=== PATIENT | female | born 1960 ===

== ENCOUNTER 2016-09-16 13:39 | Emergency (ER) | payer OTHER ==
[2016-09-16] MEDS ORDERED: Sodium Chloride 0.9% 1,000 ML IV ONE (14:23)
[2016-09-16] MEDS ORDERED: Sodium Chloride 0.9% 1,000 ML ONE (14:57)
[2016-09-16 15:07] LABS: BASO # 0.1 K/uL (0.0-0.2); BASO % 0.4 % (0.0-2.0); EOS # 0.1 K/uL (0.0-0.7); EOS % 0.6 % (0.0-4.0); HEMATOCRIT 39.8 % (34.0-47.0); LYMPH # 0.2 K/uL (1.0-4.3); LYMPH % 1.3 % (20.0-40.0); MEAN CELL VOLUME 91.4 fL (81.0-99.0); MEAN CORPUSCULAR HEMOGLOBIN 29.9 pg (27.0-31.0); MEAN CORPUSCULAR HGB CONC 32.7 g/dL (33.0-37.0); MONO # 0.6 K/uL (0.0-0.8); MONO % 4.7 % (0.0-10.0); PLATELET COUNT 184 K/uL (130-400); WHITE BLOOD COUNT 13.4 K/uL (4.8-10.8)
[2016-09-16 15:08] LABS: CHLORIDE 100 mmol/L (98-107); POTASSIUM 3.8 mmol/L (3.6-5.2); SODIUM 138 mmol/L (132-148)
--- NOTE | 2016-09-16 15:09 | C.PDOC ---
History Of Present Illness 56-year-old female, presents to the emergency department with complaints of 3-4 day duration of fevers, chills and generalized headache. Patient also notes questionable chest pain when she coughs. Denies sore throat, nausea/vomiting, diarrhea, or any other associated symptoms. No other complaints at this time. Time Seen by Provider: 09/16/16 14:00 Chief Complaint (Nursing): Chest Pain History Per: Patient History/Exam Limitations: no limitations Past Medical History Reviewed: Historical Data, Nursing Documentation, Vital Signs Vital Signs: Last Vital Signs Temp 99.6 F 09/16/16 17:44 Pulse 78 09/16/16 17:44 Resp 20 09/16/16 17:44 BP 103/77 09/16/16 17:44 Pulse Ox 97 09/16/16 17:56 - Medical History PMH: HTN, Hypercholesterolemia Surgical History: Family History: States: Unknown Family Hx - Social History Hx Tobacco Use: No Hx Alcohol Use: No Hx Substance Use: No - Immunization History Hx Tetanus Toxoid Vaccination: No Hx Influenza Vaccination: No Hx Pneumococcal Vaccination: No Review Of Systems Except As Marked, All Systems Reviewed And Found Negative. Constitutional: Positive for: Fever, Chills Cardiovascular: Negative for: Palpitations Respiratory: Negative for: Shortness of Breath Gastrointestinal: Negative for: Nausea, Vomiting Musculoskeletal: Negative for: Back Pain Skin: Negative for: Rash Neurological: Positive for: Headache Physical Exam - Physical Exam Appears: Non-toxic, No Acute Distress Skin: Warm, Dry, No Rash Head: Atraumatic, Normacephalic Eye(s): bilateral: Normal Inspection, PERRL, EOMI Ear(s): Bilateral: Normal Nose: Normal Oral Mucosa: Moist Lips: Normal Appearing Throat: No Erythema, No Exudate Neck: Normal ROM, Supple Chest: Symmetrical, No Tenderness Cardiovascular: Rhythm Regular, No Friction Rub, No Murmur Respiratory: Normal Breath Sounds, No Accessory Muscle Use, No Stridor, No Wheezing Gastrointestinal/Abdominal: Soft, No Tenderness Back: Normal Inspection, No CVA Tenderness Extremity: Normal ROM, No Swelling Neurological/Psych: Oriented x3, Normal Speech, Normal Cranial Nerves, Normal Motor Gait: Steady ED Course And Treatment - Laboratory Results Result Diagrams: 09/16/16 14:55 09/16/16 14:55 ECG: Interpreted By Me, Viewed By Me ECG Rhythm: Sinus Rhythm Interpretation Of ECG: Normal axis Rate From EC O2 Sat by Pulse Oximetry: 97 (on RA) Pulse Ox Interpretation: Normal - Radiology CXR: Interpreted by Me, Read By Radiologist CXR Interpretation: Yes: Other (Hazy opacity in both lung bases. Possible elevation of the left hemidiaphragm, nonspecific. ) Medical Decision Making Medical Decision Making: Patient was found to have bandemia of 14. Lactic acid was ordered and was normal at 1.6. The patient clinically looks well, non-toxic and reports improvement of symptoms. On re-exam, the patient reports improvement of symptoms. Lungs are CTA, heart is RRR, abdomen is soft, non-tender and tolerating PO well. Ambulatory in the Ed with steady gait. Follow up with the medical doctor within 1-2 days. Return of worsened. Disposition - Disposition Referrals: [facility] [Outside] Disposition: HOME/ ROUTINE Disposition Time: 17:53 Condition: IMPROVED Additional Instructions: Follow up with the medical doctor within 1-2 days. Return of worsened. Prescriptions: levoFLOXacin [Levaquin] 500 mg PO DAILY #10 tab Ibuprofen [Motrin] 600 mg PO TID #21 tab Instructions: Bacterial Pneumonia (ED), Urinary Tract Infection in Women (DC) Print Language: SWEDISH - Clinical Impression Clinical Impression: Pneumonia, UTI (urinary tract infection) - Scribe Statement The provider has reviewed the documentation as recorded by the Tete Fink All medical record entries made by the Scribe were at my direction and personally dictated by me. I have reviewed the chart and agree that the record accurately reflects my personal performance of the history, physical exam, medical decision making, and the department course for this patient. I have also personally directed, reviewed, and agree with the discharge instructions and disposition.
[2016-09-16 15:10] LABS: BILIRUBIN,TOTAL 0.9 mg/dL (0.2-1.3); GFR AFRICAN-AMERICAN > 60
[2016-09-16 15:11] LABS: ALB/GLOB RATIO 1.3 (1.0-2.1); ALKALINE PHOSPHATASE 79 U/L (38-126); ALT/SGPT 91 U/L (9-52); AST/SGOT 55 U/L (14-36); BLOOD UREA NITROGEN 9 mg/dL (7-17); CARBON DIOXIDE 25 mmol/L (22-30); GLUCOSE,RANDOM 129 mg/dL (65-105); TOTAL PROTEIN 7.4 g/dL (6.3-8.3)
[2016-09-16 15:12] LABS: CALCIUM 8.3 mg/dl (8.6-10.4)
[2016-09-16 15:26] LABS: RBC URINE 8 /hpf (0-3); URINE BILIRUBIN NEGATIVE (NEGATIVE); URINE BLOOD 1+ (NEGATIVE); URINE COLOR Amber (YELLOW); URINE GLUCOSE (UA) NORMAL (Normal); URINE KETONE NEGATIVE (NEGATIVE); URINE LEUKOCYTE ESTERASE NEG Leu/uL (Negative); URINE PROTEIN 1+ mg/dL (NEGATIVE); WBC URINE 2 /hpf (0-5)
--- NOTE | 2016-09-16 15:30 | RAD ---
PROCEDURE: CHEST RADIOGRAPH, 1 VIEW HISTORY: cough, headache. fever COMPARISON: 05/04/2014 FINDINGS: LUNGS: Hazy opacity in both lung bases. Possible elevation of the left hemidiaphragm, nonspecific. PLEURA: No pneumothorax or pleural fluid seen. CARDIOVASCULAR: Enlarged heart. OSSEOUS STRUCTURES: The osseous structures demonstrate degenerative changes. VISUALIZED UPPER ABDOMEN: Upper abdomen is suboptimally evaluated. OTHER FINDINGS: None. IMPRESSION: Hazy opacity in both lung bases. Possible elevation of the left hemidiaphragm, nonspecific. PA lateral chest radiographs recommended for better evaluation.
[2016-09-16 15:32] LABS: BASOPHIL 2 % (0-2); NEUTROPHIL 79 % (50-75); TOTAL CELLS COUNTED 100
[2016-09-16 16:17] LABS: VENOUS BLOOD GAS BASE EXCESS 0.6 mmol/L (0.0-2.0); VENOUS BLOOD GAS PCO2 36 mmHg (40-60); VENOUS BLOOD PH 7.44 (7.32-7.43)
[2016-09-16 17:45] VITALS: BP 103/77; PULSE 78; RESP 20; TEMP 99.6
[2016-09-16 17:54] VITALS: O2SAT 97
== END 2016-09-16 18:10 | disposition home or self-care (01) ==
LOC: C.ER 13:39
DX: J18.9 Pneumonia, unspecified organism (principal); N39.0 Urinary tract infection, site not specified
CPT/HCPCS: 71010; 80053; 81001; 82803; 85025; 87040; 87086; 96361; 96374; 99285; J1885; J7040

== ENCOUNTER 2016-09-27 19:00 | Emergency (ER) | payer OTHER ==
[2016-09-27 19:22] VITALS: O2SAT 97
[2016-09-27] MEDS ORDERED: DiphenhydrAMINE 50 mg/ml Inj IM STA (19:40)
[2016-09-27] MEDS ORDERED: DiphenhydrAMINE 50 mg/ml Inj ONE (19:54)
[2016-09-27 20:30] VITALS: BP 129/73; PULSE 69; RESP 18; TEMP 98.1
--- NOTE | 2016-09-27 20:34 | C.PDOC ---
History Of Present Illness 56 year old patient presents to the emergency department complaining of a diffuse pruritic rash for the past 4 days. Patient started taking Levaquin about 3 days before the rash started. She continued taking the pills. She has no other known allergens. Patient denies difficulty swallowing, tongue swelling , lip swelling, shortness of breath, wheezing, fever, chills, nausea or vomiting. Time Seen by Provider: 09/27/16 19:30 Chief Complaint (Nursing): Allergic Reaction History Per: Patient History/Exam Limitations: no limitations Onset/Duration Of Symptoms: Days (4) Current Symptoms Are (Timing): Still Present Context: Other Possible Cause: Medication Associated Symptoms: Skin Rash, Itching Severity: Mild Pain Scale Rating Of: 2 Recent travel outside of the [place]: No Past Medical History Reviewed: Historical Data, Nursing Documentation, Vital Signs Vital Signs: Last Vital Signs Temp 98.1 F 09/27/16 20:29 Pulse 69 09/27/16 20:29 Resp 18 09/27/16 20:29 BP 129/73 09/27/16 20:29 Pulse Ox 97 09/27/16 20:51 - Medical History PMH: HTN, Hypercholesterolemia Surgical History: Family History: States: Unknown Family Hx - Social History Hx Tobacco Use: No Hx Alcohol Use: No Hx Substance Use: No - Immunization History Hx Tetanus Toxoid Vaccination: No Hx Influenza Vaccination: No Hx Pneumococcal Vaccination: No Review Of Systems Except As Marked, All Systems Reviewed And Found Negative. Constitutional: Negative for: Fever, Chills ENT: Negative for: Mouth Swelling, Throat Swelling Respiratory: Negative for: Shortness of Breath, Wheezing Gastrointestinal: Negative for: Nausea, Vomiting Skin: Positive for: Rash Physical Exam - Physical Exam Appears: Non-toxic, No Acute Distress Skin: Warm, Dry, Rash (diffuse urticaria) Head: Atraumatic, Normacephalic Eye(s): bilateral: Normal Inspection, EOMI Ear(s): Bilateral: Normal Nose: Normal Oral Mucosa: Moist Tongue: Normal Appearing, No Swelling Lips: Normal Appearing, No Swelling Throat: Normal Neck: Normal ROM, Supple Chest: Symmetrical Cardiovascular: Rhythm Regular Respiratory: Normal Breath Sounds, No Rales, No Rhonchi, No Wheezing Neurological/Psych: Oriented x3, Normal Speech, Normal Cognition Gait: Steady ED Course And Treatment O2 Sat by Pulse Oximetry: 97 (room air) Pulse Ox Interpretation: Normal Progress Note: Plan: -Benadryl, Pepcid, Prednisone. -Reassess and disposition. Progress: Reassess (Allergic Reaction): Upon reassessment, patient is resting comfortably, tolerating PO, has no shortness of breath, has no intra-oral swelling, no stridor, and improving pruritus. Patient was advised to avoid potential allergens, and to follow up with physician. Return if symptoms worsen. Disposition Counseled Patient/Family Regarding: Diagnosis, Need For Followup, Rx Given - Disposition Referrals: [facility] [Outside] Disposition: HOME/ ROUTINE Disposition Time: 20:32 Condition: STABLE Additional Instructions: Please follow up in clinic Do not take last dose of levofloxacin Take meds as directed Return to ER if difficulty breathing, vomiting, lip swelling or worse Prescriptions: DiphenhydrAMINE [Benadryl] 50 mg PO Q6H #20 cap Famotidine [Pepcid] 20 mg PO DAILY #10 tab predniSONE [Prednisone] 40 mg PO DAILY #10 tab Instructions: Urticaria (ED) Print Language: INDIAN - Clinical Impression Clinical Impression: Allergic urticaria - 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 - Scribe Statement The provider has reviewed the documentation as recorded by the Scribe Vita Armenta All medical record entries made by the Scribe were at my direction and personally dictated by me. I have reviewed the chart and agree that the record accurately reflects my personal performance of the history, physical exam, medical decision making, and the department course for this patient. I have also personally directed, reviewed, and agree with the discharge instructions and disposition.
== END 2016-09-27 20:39 | disposition home or self-care (01) ==
LOC: C.ER 19:00
DX: L50.0 Allergic urticaria (principal)
CPT/HCPCS: 96372; 99285; J1200

== ENCOUNTER 2017-01-02 08:10 | Emergency (ER) | payer OTHER ==
--- NOTE | 2017-01-02 08:49 | C.PDOC ---
History Of Present Illness 56 yr old female presents to the ER with complaints of dysuria, superpubic discomfort and hematuria since last night. Patient reports she has had prior UTIS in the past, last one was in September. Patient denies fever, chest pain, SOB, nausea, vomiting, diarrhea, weakness or numbness. Time Seen by Provider: 01/02/17 08:26 Chief Complaint (Nursing): Female Genitourinary History Per: Patient History/Exam Limitations: no limitations Onset/Duration Of Symptoms: Waxing/Waning, Sudden Onset (Last night) Pain Scale Rating Of: 3 Past Medical History Reviewed: Historical Data, Nursing Documentation, Vital Signs Vital Signs: Last Vital Signs Temp 98.5 F 01/02/17 11:38 Pulse 57 L 01/02/17 11:38 Resp 18 01/02/17 11:38 BP 107/57 L 01/02/17 11:38 Pulse Ox 97 01/02/17 11:38 - Medical History PMH: HTN, Hypercholesterolemia Surgical History: Family History: States: No Known Family Hx - Social History Hx Tobacco Use: No Hx Alcohol Use: No Hx Substance Use: No - Immunization History Hx Tetanus Toxoid Vaccination: No Hx Influenza Vaccination: No Hx Pneumococcal Vaccination: No Review Of Systems Except As Marked, All Systems Reviewed And Found Negative. Constitutional: Negative for: Fever Cardiovascular: Negative for: Chest Pain Respiratory: Negative for: Shortness of Breath Gastrointestinal: Positive for: Abdominal Pain (Superpubic discomfort). Negative for: Nausea, Vomiting, Diarrhea Genitourinary: Positive for: Dysuria, Hematuria Neurological: Negative for: Weakness, Numbness Physical Exam - Physical Exam Appears: Non-toxic, No Acute Distress Skin: Warm, Dry, No Rash Head: Atraumatic, Normacephalic Oral Mucosa: Moist Chest: Symmetrical, No Tenderness Cardiovascular: Rhythm Regular, No Murmur Respiratory: Normal Breath Sounds, No Rales, No Rhonchi, No Stridor, No Wheezing Gastrointestinal/Abdominal: Soft, Tenderness (Mild superpubic tenderness), No Guarding, No Rebound Back: Normal Inspection, No CVA Tenderness Extremity: Normal ROM, No Swelling Neurological/Psych: Oriented x3, Normal Speech, Normal Motor ED Course And Treatment O2 Sat by Pulse Oximetry: 98 (RA ) Pulse Ox Interpretation: Normal Medical Decision Making Medical Decision Making: PLAN: * Urinalysis * Pyridium PO Disposition Counseled Patient/Family Regarding: Studies Performed, Diagnosis, Need For Followup, Rx Given - Disposition Referrals: [facility] [Outside] Disposition: HOME/ ROUTINE Disposition Time: 12:30 Condition: STABLE Additional Instructions: Follow up with your doctor or the clinic. Return to the emergency department with any further concerns. Prescriptions: Cefaclor 500 mg PO BID #20 capsule Instructions: Urinary Tract Infection in Women (DC) Forms: [employer] (Y[place]i), Gen Discharge Inst [place] Citizen - POA Present On Arrival: None - Clinical Impression Clinical Impression: UTI (urinary tract infection) - Scribe Statement The provider has reviewed the documentation as recorded by the Scribe Hayley Alcantara Provider Attestation: All medical record entries made by the Scribe were at my direction and personally dictated by me. I have reviewed the chart and agree that the record accurately reflects my personal performance of the history, physical exam, medical decision making, and the department course for this patient. I have also personally directed, reviewed, and agree with the discharge instructions and disposition.
[2017-01-02 09:37] LABS: SQUAMOUS EPITHIAL 1 /hpf (0-5); URINE BILIRUBIN NEGATIVE (NEGATIVE); URINE BLOOD 3+ (NEGATIVE); URINE CLARITY Hazy (Clear); URINE GLUCOSE (UA) NORMAL (Normal); URINE LEUKOCYTE ESTERASE 2+ Leu/uL (Negative); URINE NITRATE POSITIVE (NEGATIVE); URINE PROTEIN 2+ mg/dL (NEGATIVE); URINE UROBILINOGEN NORMAL mg/dL (0.2-1.0)
[2017-01-02 09:39] LABS: URINE COLOR AMBER (YELLOW)
[2017-01-02] MEDS ORDERED: Ciprofloxacin 400mg/200ml D5W 200 ML IVPB STA (09:40)
[2017-01-02] MEDS ORDERED: cefTRIAXone IV 1 gm in Dextros 50 ML IVPB ONE ×2 (09:40→10:11)
[2017-01-02 12:34] VITALS: O2SAT 98
[2017-01-02 13:14] VITALS: BP 134/73; PULSE 66; RESP 17; TEMP 99
== END 2017-01-02 13:14 | disposition home or self-care (01) ==
LOC: C.ER 08:10
DX: N39.0 Urinary tract infection, site not specified (principal)
CPT/HCPCS: 81001; 87086; 99285; J0696

== ENCOUNTER 2017-07-01 12:53 | Emergency (ER) | payer OTHER ==
[2017-07-01 13:10] VITALS: TEMP 98
--- NOTE | 2017-07-01 14:27 | C.PDOC ---
History Of Present Illness 57 year old female presents to the emergency room complaining of a headache for 2 weeks. Patient also reports generalized body aches. Additionally she complains of left arm pain onset today. Denies any chest pain, shortness of breath, or fever. States she has been taking Motrin without relief. PMD: None Time Seen by Provider: 07/01/17 13:27 Chief Complaint (Nursing): Flu-like Symptoms History Per: Patient History/Exam Limitations: no limitations Onset/Duration Of Symptoms: Days (x 2 weeks) Current Symptoms Are (Timing): Still Present Location Of Pain: Headache Severity: None Recent travel outside of the [place]: No Past Medical History Reviewed: Historical Data, Nursing Documentation, Vital Signs Vital Signs: Last Vital Signs Temp 98 F 07/01/17 13:07 Pulse 84 07/01/17 15:03 Resp 16 07/01/17 15:03 BP 142/84 07/01/17 15:03 Pulse Ox 99 07/01/17 15:03 - Medical History PMH: HTN, Hypercholesterolemia, Pneumonia Surgical History: Family History: States: Unknown Family Hx - Social History Hx Tobacco Use: No Hx Alcohol Use: No Hx Substance Use: No - Immunization History Hx Tetanus Toxoid Vaccination: No Hx Influenza Vaccination: No Hx Pneumococcal Vaccination: No Review Of Systems Except As Marked, All Systems Reviewed And Found Negative. Constitutional: Positive for: Other (body aches). Negative for: Fever, Chills Cardiovascular: Negative for: Chest Pain Respiratory: Negative for: Shortness of Breath Musculoskeletal: Positive for: Arm Pain (left) Neurological: Positive for: Headache Physical Exam - Physical Exam Appears: Non-toxic, No Acute Distress Skin: Normal Color, Warm, Dry Head: Atraumatic, Normacephalic Eye(s): bilateral: Normal Inspection, PERRL, EOMI Oral Mucosa: Moist Neck: Normal, Normal ROM Chest: Symmetrical Cardiovascular: Rhythm Regular, No Murmur Respiratory: Normal Breath Sounds, No Accessory Muscle Use Extremity: Normal ROM, No Tenderness, No Deformity, No Swelling Pulses: Left Radial: Normal, Right Radial: Normal Neurological/Psych: Oriented x3, Normal Speech Gait: Steady ED Course And Treatment ECG: Interpreted By Me ECG Rhythm: Sinus Bradycardia ECG Interpretation: Normal Rate From EC O2 Sat by Pulse Oximetry: 97 (RA) Pulse Ox Interpretation: Normal Progress Note: Treated with motrin 600 mg. On re-evaluation lungs clear Reassessment Condition: Improved Medical Decision Making Medical Decision Making: Time: 13:57 Initial Plan: * EKG * Motrin 600mg * Reevaluation Disposition Counseled Patient/Family Regarding: Studies Performed, Diagnosis, Need For Followup - Disposition Referrals: [facility] [Outside] [facility] [employer] [facility] [Outside] Disposition: HOME/ ROUTINE Disposition Time: 14:50 Condition: STABLE Additional Instructions: Follow up with clinc for further evaluation Prescriptions: Acetaminophen/Butalbital/Caf [Fioricet] 1 tab PO TID PRN #20 tab PRN Reason: Headache Metoprolol Succinate [Toprol XL] 50 mg PO DAILY #20 tab Instructions: Viral Syndrome (ED) Forms: [employer] (Sami) - POA Present On Arrival: None - Clinical Impression Clinical Impression: Influenza-like illness, Viral disease - 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 - Scribe Statement The provider has reviewed the documentation as recorded by the Scribe (Migdalia Ibrahim) All medical record entries made by the Scribe were at my direction and personally dictated by me. I have reviewed the chart and agree that the record accurately reflects my personal performance of the history, physical exam, medical decision making, and the department course for this patient. I have also personally directed, reviewed, and agree with the discharge instructions and disposition.
[2017-07-01 15:04] VITALS: BP 142/84; PULSE 84; RESP 16
[2017-07-01 17:32] VITALS: O2SAT 97
--- NOTE | 2017-07-05 14:20 | CARD ---
APPROVED REPORT EKG Measurement Heart [id number] <Conclusion> Sinus bradycardia Nonspecific ST abnormality Abnormal ECG
== END 2017-07-01 15:03 | disposition home or self-care (01) ==
LOC: C.ER 12:53
DX: J11.1 Influenza due to unidentified influenza virus with other respiratory manifestations (principal); B34.9 Viral infection, unspecified